=== PATIENT | female | born 1990 | race Caucasian/White ===

== ENCOUNTER 2021-03-07 06:19 | Emergency (ER) | payer OTHER ==
[~2021-03-07] VITALS: Ht 152.4 cm; Wt 56.7 kg
[2021-03-07 07:09] LABS: ABSOLUTE NEUTROPHILS 8.7 thou/uL (1.4-8.2); BASOPHILS 0.8 % (0.0-2.0); EOSINOPHILS 2.1 % (0.0-3.0); HEMOGLOBIN 12.2 gm/dL (12.0-15.0); LYMPHOCYTES 14.6 % (24.0-44.0); MCH 28.6 pg (26.0-34.0); MCV 86.6 fL (80.0-100.0); MONOCYTES 7.1 % (1.0-8.0); PLATELET COUNT 293 thou/uL (150-400); POLYS 75.4 % (36.0-66.0); RBC 4.27 mil/uL (4.20-5.00); RDW 13.1 % (10.5-14.5); WBC 11.5 thou/uL (4.0-11.0)
[2021-03-07 07:24] LABS: CALCIUM 8.4 mg/dL (8.5-10.1); CREATININE 0.7 mg/dL (0.6-1.0); POTASSIUM 3.9 mmol/L (3.5-5.1)
[2021-03-07 07:34] LABS: ALBUMIN 3.2 g/dL (3.4-5.0); TOTAL BILIRUBIN 0.3 mg/dL (0.2-1.0); TOTAL PROTEIN 6.3 g/dL (6.4-8.2)
[2021-03-07] MEDS ORDERED: NAPROSYN500 MG PO (07:54)
[2021-03-07 08:08] VITALS: BP 110/59
--- NOTE | 2021-03-07 13:01 | EKG ---
[place] [address] [facility] [place] [address] ELECTROCARDIOGRAM REPORT Name: MARCIN AMOR Room #: REG [place]#: [id number] Admission: 03/07/21 Attend Phys: Discharge: Date of : 88 Report #: [id number] [facility] ED Test Date: 2021-03-07 Test Time: 06:40:24 Pat Name: MARCIN AMOR Department: Room: Gender: F Ham Pumper: : 1990 Requested By: Edwin Ascencio Order Number: [id number] MD: Chandu Luciano Measurements Intervals [place] Rate: 111 P: 48 DE: 125 QRS: 67 QRSD: 87 T: 56 QT: 336 QTc: 457 Interpretive Statements Sinus tachycardia No previous ECG available for comparison Electronically Signed On 03-07-2021 13:01:43 [employer] by Chandu Luciano [email or web address] <ELECTRONICALLY SIGNED> By: Chandu Luciano MD, [facility] 03/07/21 1301 0640 0640 Chandu Luciano MD, [facility] /EPI
== END 2021-03-07 08:07 | disposition home or self-care (01) ==
LOC: ER 06:19
PROVIDERS: Emergency Medicine
DX: R07.89 Other chest pain (principal); Z20.822 Contact with and (suspected) exposure to COVID-19; Z98.890 Other specified postprocedural states; Z88.8 Allergy status to other drugs, medicaments and biological substances